=== PATIENT | female | born 1945 | race Caucasian/White ===

== ENCOUNTER 2017-10-10 22:19 | Emergency (ER) | payer MEDICARE ==
[~2017-10-10] VITALS: Ht 162.6 cm; Wt 52.0 kg
[2017-10-10 22:26] VITALS: BP_SYST 159; PULSE 74; RESP 16; TEMP 98.4; O2SAT 99
[2017-10-11] MEDS ORDERED: ESTR1TAB95 (00:48)
[2017-10-11] MEDS ORDERED: NO ITAB (00:48)
--- NOTE | 2017-10-11 01:14 | PD ---
HPI Chief Complaint: Edema Time Seen by Provider: 00:56 Travel History International Travel<30 days: No Contact w/Intl Traveler<30days: No Traveled to known affect area: No History of Present Illness HPI Patient is here visiting from [place], states that she was walking today in the afternoon around 2:00 she started to feel pain over to her left lateral aspect of her foot, particularly her fourth toe. She did not pay much attention to it and continue with her regular activities, however now she is having so much pain that she decided to come into the emergency department to be evaluated. She states that she has swelling to her fourth toe however denied any trauma to it no vomiting no abnormally stepping or anything like that as far as she can recall. PFSH Past Medical History Medical History: Denies Significant Hx Tetanus Vaccination: > 5 Years Influenza Vaccination: No ?: Not LMP: POST MENOPAUSAL Menopausal: Yes Past Surgical History Surgical History: No Previous Surgery Social History Alcohol Use: Yes (OCC) Tobacco Use: Yes (OCC) Substance Use: No Allergies-Medications (Allergen,Severity, Reaction): Coded Allergies: No Known Allergies (Unverified , 10/11/17) Reported Meds & Prescriptions Reported Meds & Active Scripts Active Reported Amabelz 0.5 mg-0.1 mg Tablet (Estradiol/Norethindrone Acet) 0.5 Mg-0.1 Mg Tablet Multiple Vitamin (Multivitamin with Minerals) 1 Each Tablet Review of Systems Musculoskeletal: Positive: Limited ROM (Fourth toe pain left) Physical Exam Narrative GENERAL: SKIN: Warm and dry. HEAD: Atraumatic. Normocephalic. EYES: Pupils equal and round. No scleral icterus. No injection or drainage. ENT: No nasal bleeding or discharge. Mucous membranes pink and moist. NECK: Trachea midline. No JVD. CARDIOVASCULAR: Regular rate and rhythm. RESPIRATORY: No accessory muscle use. Clear to auscultation. Breath sounds equal bilaterally. GASTROINTESTINAL: Abdomen soft, non-tender, nondistended. MUSCULOSKELETAL: Extremities without clubbing, cyanosis, or edema. No obvious deformities. Fourth digit on the left toe/foot has some edema to the fourth digit, but without any evidence of cellulitis, without any evidence of edema to the rest of the extremity. Skin is intact. Strong pulses at the dorsalis pedis and posterior tibial artery, negative Homans sign, negative tenderness to palpation on the popliteal region. NEUROLOGICAL: Awake and alert. No obvious cranial nerve deficits. Motor grossly within normal limits. Five out of 5 muscle strength in the arms and legs. Normal speech. PSYCHIATRIC: Appropriate mood and affect; insight and judgment normal. Data Data Last Documented VS Vital Signs Date Time Temp Pulse Resp B/P (MAP) Pulse Ox O2 Delivery O2 Flow Rate FiO2 10/11/17 00:50 Room Air 10/10/17 22:26 98.4 74 16 159/ 99 Orders Orders Foot, Complete ([id number]) (10/11/17 ) MDM Medical Decision Making Medical Screen Exam Complete: Yes Emergency Medical Condition: Yes Medical Record Reviewed: Yes Differential Diagnosis Toe contusion versus fracture versus dislocation versus subluxation Narrative Course After examination but shortly before any studies could be done the patient decided against staying stating that she knows that there is not a whole lot that can be done for even if it is a broken toe. So what is the point of doing an x-ray? 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 Patient declined any IM medication and would rather have a prescription to fill Diagnosis Primary Impression: Left fourth digit PAIN Patient Instructions: General Instructions Scripts Tramadol (Ultram) 50 Mg Tab 50 MG PO Q8H Y for BREAKTHROUGH PAIN for 3 Days, #9 TAB 0 Refills Prov: Rito Fabian MD 10/11/17 Ketorolac (Ketorolac) 10 Mg Tab 10 MG PO TID for Pain Management for 5 Days, #14 TAB 0 Refills Prov: Rito Fabian MD 10/11/17 Disposition: 01 DISCHARGE HOME Condition: Stable Rito Fabian MD October 11, 2017 01:14
[2017-10-11] MEDS ORDERED: KETO10 PO (01:19)
[2017-10-11] MEDS ORDERED: TRAM50 PO (01:19)
[2017-10-11] MEDS ORDERED: traMADol HCL 50 MG TAB PO ONE (01:45)
== END 2017-10-11 01:55 | disposition home or self-care (01) ==
LOC: PHED 22:19
DX: M79.675 Pain in left toe(s) (principal); Z72.0 Tobacco use
CPT/HCPCS: 99283